=== PATIENT | male | born 1950 | race American Indian/Alaskan Native ===

== ENCOUNTER 2018-10-11 15:23 | Emergency (ER) | payer MEDICARE, MEDICAID ==
[2018-10-11 15:52] VITALS: BP 121/64; PULSE 84
[2018-10-11] MEDS ORDERED: Ketorolac 30 MG/ML SDV IM ONE (17:08)
--- NOTE | 2018-10-11 17:24 | EDM.PDOC ---
ED HPI GENERAL MEDICAL PROBLEM - General Chief Complaint: Back Pain or Injury Stated Complaint: PAIN IN BACK AND HIPS Time Seen by Provider: 10/11/18 17:05 Source of Information: Reports: Patient, Family History Limitations: Reports: Other (no old records) - History of Present Illness INITIAL COMMENTS - FREE TEXT/NARRATIVE: 67 yo NA male presents with chronic low back pain. Comes with no records. Has been going to the [facility], but they completely cut him off his narcotic pain meds with no explanation. He took acetaminophen last night without relief. Has pain down both legs at times, R>L. No bowel or bladder incontinence. 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) Back Pain Score (Numeric/FACES): 10 - Related Data Allergies Allergy/AdvReac Type Severity Reaction Status Date / Time naproxen AdvReac Nausea Verified 10/11/18 15:57 prednisone AdvReac Nausea Verified 10/11/18 15:57 Home Meds: Home Meds Nabumetone [Relafen] 1,000 mg PO DAILY #30 tab 10/11/18 [Rx] Past Medical History HEENT History: Reports: Hard of Hearing Cardiovascular History: Reports: Heart Failure, High Cholesterol Other Cardiovascular History: heart attack x3 Musculoskeletal History: Reports: Arthritis, Back Pain, Chronic, RA - Past Surgical History HEENT Surgical History: Reports: Cataract Surgery, Tonsillectomy Social & Family History - Tobacco Use Smoking Status *Q: Current Every Day Smoker Years of Tobacco use: 59 Packs/Tins Daily: 0.5 - Caffeine Use Caffeine Use: Reports: Coffee - Recreational Drug Use Recreational Drug Use: No ED ROS GENERAL - Review of Systems Review Of Systems: See Below Constitutional: Reports: No Symptoms HEENT: Reports: No Symptoms Respiratory: Reports: No Symptoms Cardiovascular: Reports: No Symptoms GI/Abdominal: Reports: No Symptoms : Reports: No Symptoms. Denies: Incontinence Musculoskeletal: Reports: Back Pain (low) Skin: Reports: No Symptoms Neurological: Reports: Other (pain down legs at times) ED EXAM,LOWER BACK PAIN/INJURY - Physical Exam Exam: See Below Exam Limited By: No Limitations General Appearance: Alert, WD/WN, No Apparent Distress Eye Exam: Bilateral Eye: Normal Inspection Ears: Hearing Loss Nose: Normal Inspection, No Blood Throat/Mouth: Normal Voice, No Airway Compromise Head: Atraumatic, Normocephalic Respiratory/Chest: No Respiratory Distress, No Accessory Muscle Use Back Exam: Decreased Range of Motion Extremities: Normal Inspection, Normal Range of Motion, Non-Tender, No Pedal Edema Neurological: Alert, Normal Mood/Affect, CN II-XII Intact, No Motor/Sensory Deficits, Oriented x 3 Psychiatric: Normal Affect, Normal Mood Skin Exam: Warm, Dry, Intact, Normal Color, No Rash Course - Vital Signs Last Recorded V/S: Last Vital Signs Temp 36.1 C 10/11/18 15:56 Pulse 84 10/11/18 15:56 Resp 16 10/11/18 15:56 BP 121/64 10/11/18 15:56 Pulse Ox 96 10/11/18 15:56 - Orders/Labs/Meds Meds: Medications Discontinued Medications Generic Name Dose Route Start Last Admin Trade Name Aguila PRN Reason Stop Dose Admin Ketorolac Tromethamine 30 mg 10/11/18 17:08 10/11/18 17:17 Toradol IM 10/11/18 17:09 30 mg ONETIME ONE Administration Departure - Departure Time of Disposition: 17:30 Disposition: Home, Self-Care 01 Condition: Fair Clinical Impression: Chronic low back pain Qualifiers: Back pain laterality: unspecified Sciatica presence: without sciatica Qualified Code(s): M54.5 - Low back pain; G89.29 - Other chronic pain - Discharge Information *PRESCRIPTION DRUG MONITORING PROGRAM REVIEWED*: No *COPY OF PRESCRIPTION DRUG MONITORING REPORT IN PATIENT LY: No Prescriptions: Nabumetone [Relafen] 1,000 mg PO DAILY #30 tab Referrals: PCP,None [Primary Care Provider] - Additional Instructions: Take Nabumetone 1000 mg every evening with a snack. Add acetaminophen up to 1000 mg every 6 hrs for added relief. Recheck in the clinic as soon as possible. If your clinic does not use the program called [employer], then you need to have your records brought with you to your appt.
== END 2018-10-11 17:37 | disposition home or self-care (01) ==
LOC: JP.ED 15:23
DX: G89.29 Other chronic pain (principal); M54.5 Low back pain; E78.00 Pure hypercholesterolemia, unspecified; F17.210 Nicotine dependence, cigarettes, uncomplicated; I50.9 Heart failure, unspecified; Z88.6 Allergy status to analgesic agent; Z88.8 Allergy status to other drugs, medicaments and biological substances
CPT/HCPCS: 96372; 99282; J1885; 99283

== ENCOUNTER 2019-06-17 11:40 | Emergency (ER) | payer MEDICARE, MEDICAID ==
[2019-06-17 12:09] VITALS: BP 127/73; PULSE 75
[2019-06-17] MEDS ORDERED: Cyclobenzaprine 10 MG Tab PO ONE (12:43)
[2019-06-17] MEDS ORDERED: HYDROmorphone 1 MG/ML Syringe IM ONE (12:43)
--- NOTE | 2019-06-17 13:02 | EDM.PDOC ---
ED HPI GENERAL MEDICAL PROBLEM - General Chief Complaint: Back Pain or Injury Stated Complaint: SPIDER BITE Time Seen by Provider: 06/17/19 12:37 Source of Information: Reports: Patient, RN Notes Reviewed History Limitations: Reports: No Limitations - History of Present Illness INITIAL COMMENTS - FREE TEXT/NARRATIVE: 68-year-old gentleman presents emergency department today following trauma he slipped on some ice fell landed on his buttocks and his low back. He does have a history of chronic back pain does have a history of compression fracture as well denies any loss of bowel or bladder no head trauma no loss of consciousness - Related Data Allergies Allergy/AdvReac Type Severity Reaction Status Date / Time naproxen AdvReac Nausea Verified 06/17/19 12:00 prednisone AdvReac Nausea Verified 06/17/19 12:00 cant remember Allergy Other Uncoded 06/17/19 12:00 Home Meds: Home Meds NK [No Known Home Meds] 06/17/19 [History] Past Medical History HEENT History: Reports: Hard of Hearing Cardiovascular History: Reports: CAD, Heart Failure, High Cholesterol, NM Other Cardiovascular History: heart attack x3 Musculoskeletal History: Reports: Arthritis, Back Pain, Chronic, Fracture, RA Psychiatric History: Reports: Addiction - Past Surgical History HEENT Surgical History: Reports: Cataract Surgery, Tonsillectomy Musculoskeletal Surgical History: Reports: Arthroscopic Knee Social & Family History - Tobacco Use Smoking Status *Q: Current Every Day Smoker Years of Tobacco use: 50 Packs/Tins Daily: 1 - Caffeine Use Caffeine Use: Reports: Coffee Other Caffeine Use: 3 pots a day - Recreational Drug Use Recreational Drug Use: No ED ROS GENERAL - Review of Systems Review Of Systems: See Below Constitutional: Reports: No Symptoms Respiratory: Reports: No Symptoms Cardiovascular: Reports: No Symptoms GI/Abdominal: Reports: No Symptoms Musculoskeletal: Reports: Back Pain Neurological: Reports: No Symptoms ED EXAM,LOWER BACK PAIN/INJURY - Physical Exam Exam: See Below Text/Narrative:: Examination low back and on appreciate any erythema there is minimal wound no appreciative point tenderness muscularly paraspinally however he is tender over the lumbar spine no specific point tenderness to a particular vertebrae Exam Limited By: No Limitations General Appearance: Alert, WD/WN, No Apparent Distress Course - Vital Signs Last Recorded V/S: Last Vital Signs Temp 97.1 F 06/17/19 12:11 Pulse 75 06/17/19 12:11 Resp 20 06/17/19 12:11 BP 127/73 06/17/19 12:11 Pulse Ox 97 06/17/19 12:11 - Orders/Labs/Meds Orders: Active Orders 24 hr Category Date Time Status Lumbar Spine 2 or 3V [CR] Stat Exams 06/17/19 12:44 Taken Meds: Medications Discontinued Medications Generic Name Dose Route Start Last Admin Trade Name Aguila PRN Reason Stop Dose Admin Cyclobenzaprine HCl 10 mg 06/17/19 12:43 06/17/19 13:17 Flexeril PO 06/17/19 12:44 10 mg ONETIME ONE Administration Hydromorphone HCl 1 mg 06/17/19 12:43 06/17/19 13:18 Dilaudid IM 06/17/19 12:44 1 mg ONETIME ONE Administration Departure - Departure Time of Disposition: 14:19 Disposition: Home, Self-Care 01 Condition: Fair Clinical Impression: Chronic low back pain Qualifiers: Back pain laterality: unspecified Sciatica presence: without sciatica Qualified Code(s): M54.5 - Low back pain - Discharge Information Instructions: Acute Back Pain, Adult Referrals: PCP,None [Primary Care Provider] - Forms: ED Department Discharge Additional Instructions: Hydrocodone as needed for pain control, use Flexeril as needed for muscle spasms , please followup with your primary care provider in 3-5 days if not better, please call return to the emergency department with worsening of symptoms. Sepsis Event Note - Evaluation Sepsis Screening Result: No Definite Risk - Focused Exam Vital Signs: Vital Signs Temp Pulse Resp BP Pulse Ox 06/17/19 12:11 97.1 F 75 20 127/73 97 06/17/19 12:09 97.1 F 75 20 127/73 97 Date Exam was Performed: 06/17/19 Time Exam was Performed: 14:18 - My Orders Last 24 Hours: My Active Orders 06/17/19 12:44 Lumbar Spine 2 or 3V [CR] Stat - Assessment/Plan Last 24 Hours: My Active Orders 06/17/19 12:44 Lumbar Spine 2 or 3V [CR] Stat Plan: Assessment Acuity = acute Site and laterality = low back pain complicated patient with known history of lumbar compression fracture Etiology = secondary trauma Manifestations = none Location of injury = Home Lab values = lumbar spine films I did review films myself I cannot appreciate any acute process, the official read from radiology is pending Plan He had good improvement with 1 mg Dilaudid and 10 mg Flexeril while in the emergency department discharged home with 10 mg Flexeril p.o. 3 times daily PRN total #15 and hydrocodone 5/325 1 tab p.o. 3 times daily PRN total #10 follow- up primary care 3 to 5 days if not better This note was dictated using [employer] voice recognition software please call with any questions on syntax or grammar.
--- NOTE | 2019-06-19 09:19 | CR ---
Lumbar Spine 2 or 3V CLINICAL HISTORY: Back pain, fall FINDINGS: There is a mild anterior wedge compression deformity of L3. Chronology is uncertain. There is diffuse spondylosis. There is disc space narrowing at L5 S1. There is moderate osteoarthritis in the facets IMPRESSION: Mild anterior wedge compression of L3 of undetermined chronology
== END 2019-06-17 14:30 | disposition home or self-care (01) ==
LOC: JP.ED 11:40
DX: M54.5 Low back pain (principal); I25.10 Atherosclerotic heart disease of native coronary artery without angina pectoris; I25.2 Old myocardial infarction; I50.9 Heart failure, unspecified; F17.210 Nicotine dependence, cigarettes, uncomplicated; Z88.5 Allergy status to narcotic agent
CPT/HCPCS: 72100; 96372; 99283; A9270; J1170